=== PATIENT | female | born 2005 | race Hispanic/Latino ===

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

== ENCOUNTER 2024-01-04 08:54 | Emergency (ER) | payer MEDICAID, OTHER ==
[~2024-01-04] VITALS: Ht 160 cm; Wt 88.5 kg
[2024-01-04 10:00] VITALS: BP 131/59; PULSE 62; RESP 16; O2SAT 98
[2024-01-04] MEDS: ACETAMINOPHEN 500 MG TABLET PO ONE (10:38)
== END 2024-01-04 10:43 | disposition home or self-care (01) ==
LOC: EDH 08:54
DX: S93.402A Sprain of unspecified ligament of left ankle, initial encounter (principal); X58.XXXA Exposure to other specified factors, initial encounter; Y93.89 Activity, other specified; Y92.89 Other specified places as the place of occurrence of the external cause; Y99.8 Other external cause status
CPT/HCPCS: 73600